=== PATIENT | female | born 1970 | race Caucasian/White ===

== ENCOUNTER 2019-12-03 19:19 | Inpatient (IN) | payer OTHER ==
[~2019-12-03] VITALS: Ht 167.6 cm; Wt 68.0 kg
[~2019-12-03 19:19] MED LIST: LEVE250T2 PO; LEVO112T5 PO
[2019-12-03] MEDS ORDERED: LORAZEPAM INJ 2 MG/ML VIAL ONE (19:38)
--- NOTE | 2019-12-03 19:40 | NUR ---
PT BIB [facility] WITH A C/O WITNESSED SEIZURE. PT REC'D 10MG DIAZAPAM BY FAMILY CESSATION SYSTEMS OUTREACH SPECIALIST AND VERSED WAS GIVEN IV BY RESCUE. PT HAS AN 18G IV IN LT WRIST. IV IS NOT FLUSHING WELL. WILL START A NEW LINE. PT WAS PLACED ON THE MONITOR AND CONTINUOUS PULSE OX. SR UP X2 AND PADDED. PT IS FEBRILE WITH RECTAL TEMP OF 102.3F
[2019-12-03 19:58] LABS: BASOPHILS % (AUTO) 0.3 % (0.0-2.0); EOSINOPHILS % (AUTO) 0.1 % (0.0-6.0); HEMATOCRIT 39 % (33-45); HEMOGLOBIN 13.7 g/dL (11.5-14.8); LYMPHOCYTES # (AUTO) 0.1 /CMM (0.8-4.8); LYMPHOCYTES % (AUTO) 0.9 % (20.0-44.0); MEAN CORPUSCULAR HGB CONC 35 g/dl (31.0-36.0); MEAN CORPUSCULAR VOLUME 90 fL (82-100); MONOCYTES # (AUTO) 0.9 /CMM (0.1-1.30); MONOCYTES % (AUTO) 5.4 % (2.0-12.0); NEUTROPHILS # (AUTO) 14.6 /CMM (1.8-8.9); NEUTROPHILS % (AUTO) 93.3 % (43.0-81.0); PLATELET COUNT (AUTO) 300 /CMM (150-450); RED BLOOD CELL COUNT(AUTO) 4.38 MIL/uL (4.0-5.2); WHITE BLOOD COUNT (AUTO) 15.6 K/uL (4.3-11.0)
[2019-12-03] MEDS ORDERED: LORAZEPAM INJ 2 MG/ML VIAL IVP ONE (20:00)
[2019-12-03] MEDS ORDERED: LEVETIRACETAM (500MG) 1,000 MG in IV NS 0.9% 100 ML IV ONE (20:00)
[2019-12-03] MEDS ORDERED: IV NS 0.9% 1,000 ML BAG IV ONE ×2 (20:00→20:30)
--- NOTE | 2019-12-03 20:12 | NUR ---
PT LEFT FOR CT VIA RNEY
[2019-12-03 20:15] LABS: CALCIUM, SERUM 8.8 mg/dL (8.5-10.1); CARBON DIOXIDE 25 mmol/L (21-32); CHLORIDE 96 mmol/L (98-107); CREATININE 0.8 mg/dL (0.6-1.3); GLUCOSE 143 mg/dL (74-106); POTASSIUM 3.5 mmol/L (3.5-5.1); SODIUM SERUM 132 mmol/L (136-145); UREA NITROGEN, BLOOD 17 mg/dL (7-18)
[2019-12-03 20:21] LABS: ALANINE AMINOTRANSFERASE 47 U/L (12-78); ALBUMIN 3.1 g/dL (3.4-5.0); ALKALINE PHOSPHATASE 135 U/L (46-116); ASPARTATE AMINOTRANSFERASE 37 U/L (15-37); BILIRUBIN,DIRECT 0.1 mg/dL (0.0-0.2); BILIRUBIN,TOTAL 0.5 mg/dL (0.2-1.0); TOTAL PROTEIN, SERUM 6.9 g/dL (6.4-8.2)
[2019-12-03] MEDS ORDERED: MEROPENEM 1 G in IV NS 0.9% 100 ML IV ONE (20:30)
[2019-12-03 20:38] LABS: APPEARANCE,URINE Slightly Cloudy (CLEAR); BILIRUBIN,URINE Negative (NEGATIVE); BLOOD, URINE Moderate Ery/uL (NEGATIVE); COLOR,URINE Yellow (YELLOW); KETONES,URINE 15 (NEGATIVE); LEUKOCYTE ESTERASE ,URINE Small (NEGATIVE); NITRITE, URINE Positive (NEGATIVE); PH,URINE 5.5 (5.0-8.0); PROTEIN,URINE 30 mg/dl (NEGATIVE); UGLUCOSE Negative (NEGATIVE); UROBILINOGEN,URINE 0.2 EU/dL (0.2)
[2019-12-03 20:58] LABS: BACTERIA,URINE 4+ /HPF (None Seen); SQUAMOUS EPITHELIAL CELL,UR Few /HPF (None Seen)
--- NOTE | 2019-12-03 21:00 | NUR ---
PT IS STILL POSTICTAL. PT HAS A CHESTY COUGH. DR HAYWOOD NOTIFIED AND NASOPHARYNGEAL SUCTIONING REQUESTED FROM RT.
--- NOTE | 2019-12-03 21:06 | NUR ---
RT IS AT THE BEDSIDE SUCTIONING THE PT.
[2019-12-03] MEDS ORDERED: MEROPENEM 1 G VIAL IV ONE (21:09)
--- NOTE | 2019-12-03 21:15 | NUR ---
CALLED FOR ISO BED
--- NOTE | 2019-12-03 21:22 | NUR ---
BED ASSIGNMENT 106
--- NOTE | 2019-12-03 21:31 | NUR ---
CALLING REPORT TO SHANON GAMBLE
--- NOTE | 2019-12-03 21:45 | NUR ---
RN OPNENING NOTE PATIENT ARRIVED TO UNIT AT THIS TIME VIA STRETCHER. A&O X1. RESPONSIVE TO LIGHT PAIN. BREATHING IS EVEN AND NON LABORED. ON O2 2L VIA NC. VITALS WNL/ BHUPINDER AND PARAFFINER GARLAND IS AT BEDSIDE AT THIS TIME. PATIENT APPEARS TO BE DROWSY. UNCLEAR SPEECH. FLACCID RIGHT LOWER AND UPPER EXTREMITIES. SKIN IS INTACT. CAPILLARY REFILL <3 SECONDS. BOWEL SOUNDS ON ALL FOUR QUADRANTS. ON SUPRAPUBIC CATH AND DRAINING WELL. URINE IS CLEAR AND YELLOW IN COLOR. IN NO APPARENT DISTRESS NOTED AT THIS TIME. BED SIDE RAILS ARE PADDED FOR SEIZURE PRECAUTIONS. BED IS LOWERED TO LOWEST POSITION AND LOCKED FOR SAFETY. CALL LIGHT IS WITHIN REACH. WILL CONTINUE TO MONITOR.
[2019-12-03] MEDS ORDERED: CEFTRIAXONE 1GM BAG (ER ONLY) 1 GM/50 ML PIGGYBACK IV SCH (23:51)
[2019-12-04] MEDS ORDERED: ONDANSETRON HCL/PF 4 MG/2 ML VIAL IVP PRN
[2019-12-04] MEDS ORDERED: MORPHINE SULFATE INJ 2 MG/ML DISP.SYRIN IV PRN
[2019-12-04] MEDS ORDERED: ACETAMINOPHEN 325 MG TABLET PO PRN
[2019-12-04] MEDS ORDERED: ACETAMINOPHEN 650 MG/SUPP.RECT RC PRN
[2019-12-04] MEDS ORDERED: Potassium Chloride 20 MEQ in IV NS 0.9% 1,000 ML IV PRN ×2
[2019-12-04] MEDS ORDERED: LORAZEPAM INJ 2 MG/ML VIAL IV PRN
[2019-12-04] MEDS ORDERED: CEFTRIAXONE 1 G VIAL ONE (00:21)
[2019-12-04] MEDS: CEFTRIAXONE 1 G in IV D5W 50 ML IV SCH ×2 (01:06→22:07)
[2019-12-04] MEDS: IV NS W/20MEQ KCL 1L IV PRN ×4 (01:26→15:48)
[2019-12-04 06:56] LABS: BASOPHILS % (AUTO) 0.2 % (0.0-2.0); EOSINOPHILS % (AUTO) 0.6 % (0.0-6.0); HEMATOCRIT 39 % (33-45); HEMOGLOBIN 13.4 g/dL (11.5-14.8); LYMPHOCYTES # (AUTO) 0.6 /CMM (0.8-4.8); LYMPHOCYTES % (AUTO) 5.9 % (20.0-44.0); MEAN CORPUSCULAR HGB CONC 34 g/dl (31.0-36.0); MEAN CORPUSCULAR VOLUME 92 fL (82-100); MONOCYTES # (AUTO) 0.7 /CMM (0.1-1.30); MONOCYTES % (AUTO) 7.4 % (2.0-12.0); NEUTROPHILS # (AUTO) 8.7 /CMM (1.8-8.9); NEUTROPHILS % (AUTO) 85.9 % (43.0-81.0); PLATELET COUNT (AUTO) 293 /CMM (150-450); RED BLOOD CELL COUNT(AUTO) 4.29 MIL/uL (4.0-5.2); WHITE BLOOD COUNT (AUTO) 10.1 K/uL (4.3-11.0)
--- NOTE | 2019-12-04 06:59 | NUR ---
RN CLOSING NOTE PATIENT IS IN BED RESTING WITH HOB ELEVATED. BREATHING IS EVEN AND NON LABORED. NO SOB NOTED. IN NO APPARENT DISTRESS. PATIENT IS KEPT CLEAN, DRY, AND COMFORTABLE. CALL LIGHT IS WITHIN EASY REACH. WILL ENDORSE TO AM SHIFT RN FOR CONTINUATION OF CARE.
--- NOTE | 2019-12-04 07:05 | NUR ---
RN OPENING NOTES PT IS ASLEEP IN BED WITH HOB ELEVATED WITH EQUAL CHEST RISE AND FALL AND SHOWS NO SIGNS OF SOB AT PRESENT MOMENT. PT IS SR ON TELE MONITOR 98 HR . SEIZURE PRECAUTIONS IN PLACE. BED IS LOCKED AND IN LOWEST POSITION WITH CALL LIGHT IN REACH. WILL CONTINUE TO MONITOR.
[2019-12-04 07:36] LABS: THYROID STIMULATING HORMONE 2.959 uIU/mL (0.358-3.74)
[2019-12-04 07:44] LABS: ALBUMIN 2.7 g/dL (3.4-5.0); BILIRUBIN,TOTAL 0.5 mg/dL (0.2-1.0); CALCIUM, SERUM 8.7 mg/dL (8.5-10.1); CREATININE 0.6 mg/dL (0.6-1.3); MAGNESIUM 1.9 mg/dL (1.8-2.4); PHOSPHORUS 3.3 mg/dL (2.5-4.9); POTASSIUM 3.8 mmol/L (3.5-5.1); TOTAL PROTEIN, SERUM 6.1 g/dL (6.4-8.2)
[2019-12-04 08:00] VITALS: BP 118/70
[2019-12-04] MEDS: LEVOTHYROXINE SODIUM 112 MCG TABLET PO SCH (08:28)
[2019-12-04] MEDS ORDERED: LACO150T2 PO (08:42)
[2019-12-04] MEDS ORDERED: AMLO5TAB9 PO (08:42)
[2019-12-04] MEDS ORDERED: CLOB10TA3 PO (08:42)
[2019-12-04] MEDS ORDERED: LACO200T2 PO (08:42)
[2019-12-04] MEDS ORDERED: LISI-607 PO (08:42)
[2019-12-04] MEDS ORDERED: LEVETIRACETAM (500MG) 500 MG in IV NS 0.9% 100 ML IV SCH ×3 (09:00)
[2019-12-04 12:00] VITALS: BP 109/85
[2019-12-04 16:00] VITALS: BP 126/90
--- NOTE | 2019-12-04 17:22 | NUR ---
REPORT GIVEN TO RN EMERALD FOR TRANSFER OF CARE.
--- NOTE | 2019-12-04 18:25 | NUR ---
rn closing notes Patient remains on room air, no sob noted, a/o x1 at this time. SR rhytm on the tele. Suprapubic cath in place and is draining. Bed ridden and skin is intact, patient with regular diet. Patient has a R hand with 20 gauge with 20 MEQ KCL NS @ 70 ml per hour. Bed at the lowest setting, call light within reach, side rails up x2. Will give report to NOC RN for APOLINAR bedside.
[2019-12-04 20:00] VITALS: BP 120/73
--- NOTE | 2019-12-04 20:00 | NUR ---
CLINICAL DATA ASSISTANT NOTES RECEIVED PATIENT AWAKE IN BED WITH NO DISTRESS NOTED. CALL LIGHT WITHIN REACH. CAREGIVER AT BEDSIDE. PERIPHERAL LINE INTACT AND PATENT. SUPRAPUBIC CATH INTACT AND PATENT. NO C/O PAIN OR DISCOMFORT. SEIZURE PRECAUTIONS MAINTAINED. BED IN LOW LOCK SETTING. ROOM FREE OF CLUTTER AND BELONGINGS KEPT NEAR BEDSIDE. WILL CONTINUE TO MONITOR
[2019-12-04] MEDS ORDERED: LACOSAMIDE ORAL SOLN 50 MG/5 ML UDC PO SCH (22:00)
[2019-12-04] MEDS ORDERED: CLOBAZAM 10 MG PO SCH ×2 (22:00)
[2019-12-04] MEDS ORDERED: LACOSAMIDE ORAL SOLN 50 MG/5 ML UDC ONE (23:05)
[2019-12-05] VITALS (7 sets, daily range): BP systolic 122–157; BP diastolic 76–86
[2019-12-05] MEDS: IV NS W/20MEQ KCL 1L IV PRN ×4 (05:46→22:10)
--- NOTE | 2019-12-05 06:28 | NUR ---
CHIEF SUPPLY CHAIN OFFICER NOTES PATIENT ASLEEP IN BED WITH NO DISTRESS NOTED. CALL LIGHT WITHIN REACH. ALL DUE MEDS GIVEN ORDERED WITH NO ASE NOTED. PERIPHERAL LINE INTACT AND PATENT. SUPRAPUBIC CATH INTACT, PATENT, AND DRAINED 1600ML CLEAR YELLOW URINE. SEIZURE PRECAUTIONS MAINTAINED. BED IN LOW LOCK SETTING. ROOM FREE OF CLUTTER AND BELONGINGS KEPT NEAR BEDSIDE. WILL ENDORSE TO ONCOMING SHIFT
--- NOTE | 2019-12-05 07:05 | NUR ---
STOPPERER ASSEMBLER OPENING NOTES RECEIVED PATIENT IN BED, ALERT AND AWAKE ORIENTED TO SELF. PATIENT SOFT SPOKEN. NO SOB. HOB ELEVATED. DENIES ANY C/O PAIN NOR DISCOMFORT AT THIS TIME. SUPRAPUBIC CATH INTACT AND PATENT DRAINING VIA BEDSIDE. RIGHT HAND # 20 INTACT AND PATENT INFUSING IVF ORDERED. BED IN LOWEST POSITION, LOCKED. BED SIDERAILS UP X2. SEIZURE PRECAUTIONS OBSERVED. CALL LIGHT WITHIN REACH. FREQUENT VISUAL CHECK DONE.
[2019-12-05] MEDS: LEVOTHYROXINE SODIUM 112 MCG TABLET PO SCH (08:48)
[2019-12-05] MEDS ORDERED: LACOSAMIDE ORAL SOLN 50 MG/5 ML UDC PO SCH ×2 (09:00)
[2019-12-05] MEDS ORDERED: CLOBAZAM 10 MG PO SCH ×2 (09:00)
[2019-12-05] MEDS ORDERED: BISACODYL SUPP (10 MG) 10 MG/SUPP.RECT SUPP.RECT RC PRN (13:00)
[2019-12-05 13:09] LABS: BASOPHILS % (AUTO) 0.4 % (0.0-2.0); EOSINOPHILS % (AUTO) 1.8 % (0.0-6.0); HEMATOCRIT 36 % (33-45); HEMOGLOBIN 12.5 g/dL (11.5-14.8); LYMPHOCYTES # (AUTO) 0.6 /CMM (0.8-4.8); LYMPHOCYTES % (AUTO) 10.1 % (20.0-44.0); MEAN CORPUSCULAR HGB CONC 35 g/dl (31.0-36.0); MEAN CORPUSCULAR VOLUME 91 fL (82-100); MONOCYTES # (AUTO) 0.5 /CMM (0.1-1.30); MONOCYTES % (AUTO) 8.8 % (2.0-12.0); NEUTROPHILS # (AUTO) 4.9 /CMM (1.8-8.9); NEUTROPHILS % (AUTO) 78.9 % (43.0-81.0); PLATELET COUNT (AUTO) 317 /CMM (150-450); RED BLOOD CELL COUNT(AUTO) 3.95 MIL/uL (4.0-5.2); WHITE BLOOD COUNT (AUTO) 6.2 K/uL (4.3-11.0)
[2019-12-05 13:36] LABS: CALCIUM, SERUM 7.8 mg/dL (8.5-10.1); CREATININE 0.6 mg/dL (0.6-1.3); POTASSIUM 3.6 mmol/L (3.5-5.1)
--- NOTE | 2019-12-05 14:40 | NUR ---
MIDDLE SCHOOL SPECIAL EDUCATION TEACHER NOTES RECEIVED A CALL FROM DR. PENA WITH N.O CARRIED OUT FOR INCREASE ONFI TO 20 MG PO Q12HR AND INCREASE VIMPAT ORAL SOLUTION TO 250MG PO Q 12HR.
[2019-12-05] MEDS ORDERED: KEY,NONCONTROL,TO KEEP IN PYXI 1 EA MC ONE ×2 (16:27→19:16)
[2019-12-05] MEDS: DOCUSATE SODIUM LIQ 100 MG/10 ML UDC PO SCH (16:30)
--- NOTE | 2019-12-05 16:30 | NUR ---
MS RN NOTES RECEIVED 20 TABS OF ONFI, PUT IN SAFE IN MED ROOM.
--- NOTE | 2019-12-05 19:08 | NUR ---
CHILD WELFARE DIRECTOR CLOSING NOTES PATIENT RESTING COMFRTABLY IN BED. CAREGIVER AT BEDSIDE. NO S/S OF RESPIRATORY DISTRESS. HOB ELEVATED. DENIES ANY C/O PAIN NOR DISCOMFORT AT THIS TIME. SUPRAPUBIC CATH INTACT AND PATENT DRAINING VIA YELLOW COLORED URINE VIA BEDSIDE. RIGHT HAND # 20 INTACT AND PATENT INFUSING POTASSIUM CHLORIDE 20MEQ @ 80ML/HR. RELAYED TO JOSSY BELLA POTASSIUM LEVEL DURING ROUNDS AND PATIENT CURRENTLY ON KCL IVF WITH NNO AT THIS TIME. BED IN LOWEST POSITION, LOCKED. BED SIDERAILS UP X2. SEIZURE PRECAUTIONS OBSERVED. CALL LIGHT WITHIN REACH. FREQUENT VISUAL CHECK DONE. IN NO APPARENT DISTRESS.
--- NOTE | 2019-12-05 19:24 | NUR ---
WRAPPER STITCHER NOTES ENDORSED TO ONCOMING SHOFT REGARDING ONFI IN MED SAFE.
--- NOTE | 2019-12-05 19:44 | NUR ---
VASCULAR SURGERY PHYSICIAN OPENING NOTE RECEIVED PT, PT IN BED WITH CAREGIVER AT SIDE. PT PULLED IV OUT. HOB ELEVATED, MONITOR CARDIAC CARE UNIT NURSE LIGHT WITHIN REACH, WILL RESTART IV TELE MONITOR ON. SAFETY MEASURES IN PLACE.
--- NOTE | 2019-12-05 20:15 | NUR ---
SHINGLE GRADER NOTE REINSERTED IV 20 GAUGE TO LEFT HAND. IV FLUSHED WITH 0.9% NS 10ML, GOOD BLOOD RETURN. IV SITE PATENT AND INTACT
[2019-12-05] MEDS ORDERED: MISCELLANEOUS MED 1 EA EA PO SCH ×2 (21:00)
[2019-12-05] MEDS: CEFTRIAXONE 1 G in IV D5W 50 ML IV SCH (21:58)
[2019-12-05] MEDS: LACOSAMIDE ORAL SOLN 50 MG/5 ML UDC PO SCH ×2 (22:38→22:58)
[2019-12-05] MEDS: CLOBAZAM 10 MG PO SCH (22:57)
[2019-12-06 06:35] LABS: BASOPHILS % (AUTO) 0.9 % (0.0-2.0); HEMATOCRIT 35 % (33-45); HEMOGLOBIN 12.3 g/dL (11.5-14.8); LYMPHOCYTES # (AUTO) 0.9 /CMM (0.8-4.8); LYMPHOCYTES % (AUTO) 16.3 % (20.0-44.0); MEAN CORPUSCULAR HGB CONC 35 g/dl (31.0-36.0); MEAN CORPUSCULAR VOLUME 91 fL (82-100); MONOCYTES # (AUTO) 0.5 /CMM (0.1-1.30); MONOCYTES % (AUTO) 9.2 % (2.0-12.0); NEUTROPHILS # (AUTO) 3.8 /CMM (1.8-8.9); NEUTROPHILS % (AUTO) 70.6 % (43.0-81.0); PLATELET COUNT (AUTO) 297 /CMM (150-450); RED BLOOD CELL COUNT(AUTO) 3.84 MIL/uL (4.0-5.2); WHITE BLOOD COUNT (AUTO) 5.4 K/uL (4.3-11.0)
[2019-12-06 06:43] LABS: CALCIUM, SERUM 8.3 mg/dL (8.5-10.1); CREATININE 0.6 mg/dL (0.6-1.3)
--- NOTE | 2019-12-06 06:56 | NUR ---
SPACE SCIENCES DIRECTOR CLOSING NOTE PT IN BED SLEEPING, SAFETY PRECAUTIONS IN PLACE. IV SITE TO LEFT HAND PATENT AND INTACT. ENDORSED TO AM NURSE PER APOLINAR
--- NOTE | 2019-12-06 07:20 | NUR ---
RN OPENING NOTE: RECEIVED PATIENT IN BED, ASLEEP. ON ROOM AIR AND TOLERATING WELL. NO SOB AND NO RESPIRATORY DISTRESS NOTED. SATURATION >92%. NO PAIN NOTED. WITH SUPRAPUBIC CATHETER DRAINING YELLOW URINE NOTED. IV SITE ON LEFT HAND WITH IV INFUSION RUNNING AND TOLERATED WELL. SITE CLEAN, DRY AND PATENT. NO PAIN NOTED. CALL LIGHT WITHIN REACH. BED LOCKED, LOW AND AT SEMI-PARKS'S POSITION. SIDE RAILS UP X2. WILL CONTINUE TO MONITOR.
[2019-12-06 08:00] VITALS: BP 132/75
[2019-12-06] MEDS ORDERED: KEY,NONCONTROL,TO KEEP IN PYXI 1 EA MC ONE (08:27)
[2019-12-06] MEDS: CLOBAZAM 10 MG PO SCH ×2 (08:28→21:37)
[2019-12-06] MEDS: LEVOTHYROXINE SODIUM 112 MCG TABLET PO SCH (09:24)
[2019-12-06] MEDS: DOCUSATE SODIUM LIQ 100 MG/10 ML UDC PO SCH ×2 (09:24→17:31)
--- NOTE | 2019-12-06 10:45 | NUR ---
RN NOTE: UPON AWAITING FOR THE REST OF THE 15ML OF VIMPAT, 10ML DOSE ON HAND RETURNED TO [facility] PER PHARMACY RECOMMENDATION. AND PHARMACY WILL DISPENSE TOTAL OF 25ML UPON REFILLING OF MEDICATION. WITNESSED BY SHANON SANCHEZ
[2019-12-06] MEDS: LACOSAMIDE ORAL SOLN 50 MG/5 ML UDC PO SCH ×2 (11:13→21:38)
--- NOTE | 2019-12-06 14:37 | NUR ---
RN NOTE: CONTACTED JOSSY BOYLE NP FOR PATIENT'S MED RECON RECOMMENDED BY PHARMACY. AWAITING RESPONSE
[2019-12-06] MEDS: MEROPENEM 500 MG in IV NS 0.9% 50 ML IV SCH ×2 (15:18→21:37)
[2019-12-06 16:00] VITALS: BP 157/95
--- NOTE | 2019-12-06 19:20 | NUR ---
RN CLOSING NOTE: PATIENT IN BED. AWAKE, ALERT AND ORIENTEDX1. ON ROOM AIR AND TOLERATING WELL. NO SOB AND NO RESPIRATORY DISTRESS NOTED. CAREGIVER AT BEDSIDE. SATURATION >92%. NO PAIN NOTED. WITH SUPRAPUBIC CATHETER DRAINING YELLOW URINE NOTED. NO PAIN NOTED. CALL LIGHT WITHIN REACH. BED LOCKED, LOW AND AT SEMI-PARKS'S POSITION. SIDE RAILS UP X2. ENDORSED TO ONCOMING SHIFT FOR APOLINAR.
--- NOTE | 2019-12-06 19:20 | NUR ---
RN MS OPENING NOTES RECEIVED PATIENT IN BED AWAKE ALERT AND ORIENTED X1, RESPIRATIONS EVEN AND UNLABORED WITH EQUAL RISE AND FALL OF CHEST, UPON ASSESSMENT NO PAIN NOTED, NO FACIAL GRIMACING PRESENT, APPEARS COMFORTABLE, NEW IV INSERTED TO RIGHT HAND #22 G INTACT AND PATENT, SL, NO REDNESS, NO INFILTRATION PRESENT, SAFETY PRECAUTIONS IN PLACE, LOW BED AND LOCKED, ALL NEEDS ATTENDED AT THIS TIME, REPOSITIONED, HEELS FLOATED, SUPRAPUBIC IN PLACE AND DRAINING WELL, WILL CONTINUE TO MONITOR AND ATTEND TO NEEDS.
[2019-12-06 20:00] VITALS: BP 128/86
[2019-12-07 04:00] VITALS: BP 127/81
[2019-12-07 04:30] VITALS: BP 127/81
[2019-12-07] MEDS: MEROPENEM 500 MG in IV NS 0.9% 50 ML IV SCH ×3 (05:09→18:16)
[2019-12-07 06:23] LABS: BASOPHILS % (AUTO) 0.4 % (0.0-2.0); EOSINOPHILS % (AUTO) 3.5 % (0.0-6.0); HEMATOCRIT 39 % (33-45); HEMOGLOBIN 13.6 g/dL (11.5-14.8); LYMPHOCYTES # (AUTO) 0.8 /CMM (0.8-4.8); LYMPHOCYTES % (AUTO) 14.9 % (20.0-44.0); MEAN CORPUSCULAR HGB CONC 35 g/dl (31.0-36.0); MEAN CORPUSCULAR VOLUME 90 fL (82-100); MONOCYTES # (AUTO) 0.5 /CMM (0.1-1.30); MONOCYTES % (AUTO) 9.2 % (2.0-12.0); NEUTROPHILS # (AUTO) 3.9 /CMM (1.8-8.9); PLATELET COUNT (AUTO) 319 /CMM (150-450); RED BLOOD CELL COUNT(AUTO) 4.33 MIL/uL (4.0-5.2); WHITE BLOOD COUNT (AUTO) 5.4 K/uL (4.3-11.0)
--- NOTE | 2019-12-07 06:23 | NUR ---
RN MS CLOSING NOTES PATIENT IN BED AWAKE ALERT AND ORIENTED X1, RESPIRATIONS EVEN AND UNLABORED WITH EQUAL RISE AND FALL OF CHEST, UPON ASSESSMENT NO PAIN NOTED, NO FACIAL GRIMACING PRESENT, APPEARS COMFORTABLE, REPOSITIONED Q2HRS , OFFLOADED HEELS WITH PILLOWS, IV TO RIGHT HAND #22 G INTACT AND PATENT, SL, NO REDNESS, NO INFILTRATION PRESENT, SAFETY PRECAUTIONS IN PLACE, LOW BED AND LOCKED, ALL NEEDS ATTENDED AT THIS TIME, SUPRAPUBIC CATHETER IN PLACE AND DRAINING WELL, WILL CONTINUE TO MONITOR AND ATTEND TO NEEDS AND ENDORSE TO NEXT SHIFT, SCHEDULED MEDS GIVEN ORDERED NO ADVERSE REACTIONS.
[2019-12-07 06:32] LABS: CALCIUM, SERUM 8.9 mg/dL (8.5-10.1); CREATININE 0.6 mg/dL (0.6-1.3); POTASSIUM 3.8 mmol/L (3.5-5.1)
--- NOTE | 2019-12-07 07:18 | NUR ---
MS RN OPENING NOTES RECEIVED PATIENT FROM PREPARATION DEPARTMENT SUPERVISOR NURSE. PT IS ASLEEP IN BED, RESTING COMFORTABLY. RESPIRATIONS ARE EVEN AND UNLABORED, ON ROOM AIR SATURATING WELL. PT IS A/O X1, HAS DELAYED SPEECH. SUPRAPUBIC CATHETER IS IN PLACE, DRAINING WELL, 1300ML DURING NIGHT. IV ON RIGHT HAND, GAUGE #22, INTACT, PATENT, AND FLUSHED WELL. NO SIGNS AND SYMPTOMS OF INFECTION OR INFILTRATION NOTED. ON SL. SAFETY MAINTAINED, CALL LIGHT WITHIN REACH, WILL CONTINUE TO MONITOR.
[2019-12-07] MEDS ORDERED: LEVOTHYROXINE SODIUM 112 MCG TABLET PO SCH (07:30)
[2019-12-07 08:00] VITALS: BP 109/76
[2019-12-07] MEDS ORDERED: KEY,NONCONTROL,TO KEEP IN PYXI 1 EA MC ONE ×2 (09:32→18:44)
[2019-12-07] MEDS: DOCUSATE SODIUM LIQ 100 MG/10 ML UDC PO SCH ×2 (09:40→16:50)
[2019-12-07] MEDS: LACOSAMIDE ORAL SOLN 50 MG/5 ML UDC PO SCH (09:40)
[2019-12-07] MEDS: CLOBAZAM 10 MG PO SCH (09:44)
[2019-12-07] MEDS ORDERED: LACO10SO PO (12:51)
[2019-12-07] MEDS ORDERED: MERO500V23 IV (12:51)
[2019-12-07 16:00] VITALS: BP 136/84
--- NOTE | 2019-12-07 19:27 | NUR ---
DISCHARGED PATIENT TO HOME. ALL PATIENT NEEDS MET. PATIENT IN STABLE CONDITION. DISCHARGE EDUCATION WAS PROVIDED TO THE AND THE PATIENT. SIGNED AND PLACED IN THE CHART. TAKEN OUT THE HOSPITAL BY AND CAREGIVER VIA WHEELCHAIR.
== END 2019-12-07 19:44 | disposition home or self-care (01) | DRG 872 ==
LOC: ER 19:22 → TELE1 21:43 → MEDSG1 12-06 03:58
PROVIDERS: ADMIT Internal Medicine
DX: A41.9 Sepsis, unspecified organism (principal); D68.59 Other primary thrombophilia; E87.1 Hypo-osmolality and hyponatremia; N39.0 Urinary tract infection, site not specified; I69.351 Hemiplegia and hemiparesis following cerebral infarction affecting right dominant side; E87.2 Acidosis; G40.901 Epilepsy, unspecified, not intractable, with status epilepticus; R65.20 Severe sepsis without septic shock; G35 Multiple sclerosis; E03.9 Hypothyroidism, unspecified; G40.909 Epilepsy, unspecified, not intractable, without status epilepticus; Z74.01 Bed confinement status; E86.1 Hypovolemia; Z79.890 Hormone replacement therapy; Z79.899 Other long term (current) drug therapy; Z87.440 Personal history of urinary (tract) infections; Z74.09 Other reduced mobility; B96.20 Unspecified Escherichia coli [E. coli] as the cause of diseases classified elsewhere
CPT/HCPCS: 36415; 70450-TC; 71045-TC; 80048-TC; 80053-TC; 80061-TC; 80076-TC; 81000-TC; 83605-TC; 83735-TC; 84100-TC; 84443-TC; 84484-TC; 84702-TC; 85025-TC; 85730-TC; 87040-TC; 87081-TC; 87086-TC; 87186-TC; 95819-TC; A4216; A4217; G0378; J0696; J1953; J2060; J2185; J3480; J7030; J7060

== ENCOUNTER 2020-10-14 02:51 | Inpatient (IN) | payer OTHER ==
[~2020-10-14] VITALS: Ht 172.7 cm; Wt 68.0 kg
[~2020-10-14 02:51] MED LIST changes: +AMLO-212 PO; +LACO10SO3 PO; -LEVE250T2 PO; +LISI-607 PO; +MERO500V23 IV
[2020-10-14] MEDS ORDERED: LEVETIRACETAM (500MG) 500 MG in IV NS 0.9% 100 ML IV ONE (03:00)
[2020-10-14] MEDS ORDERED: IV NS 0.9% 500 ML BAG IV ONE (03:00)
[2020-10-14] MEDS ORDERED: LEVETIRACETAM (500MG) 500 MG/5 ML VIAL IV ONE (03:10)
[2020-10-14 03:47] LABS: BASOPHILS % (AUTO) 0.2 % (0.0-2.0); EOSINOPHILS % (AUTO) 0.5 % (0.0-6.0); HEMATOCRIT 35 % (33-45); HEMOGLOBIN 12.6 g/dL (11.5-14.8); LYMPHOCYTES # (AUTO) 0.5 /CMM (0.8-4.8); LYMPHOCYTES % (AUTO) 5.9 % (20.0-44.0); MEAN CORPUSCULAR HGB CONC 36 g/dl (31.0-36.0); MEAN CORPUSCULAR VOLUME 87 fL (82-100); MONOCYTES # (AUTO) 0.5 /CMM (0.1-1.30); MONOCYTES % (AUTO) 5.2 % (2.0-12.0); NEUTROPHILS # (AUTO) 8.1 /CMM (1.8-8.9); NEUTROPHILS % (AUTO) 88.2 % (43.0-81.0); PLATELET COUNT (AUTO) 291 /CMM (150-450); RED BLOOD CELL COUNT(AUTO) 4.02 MIL/uL (4.0-5.2); WHITE BLOOD COUNT (AUTO) 9.2 K/uL (4.3-11.0)
[2020-10-14 04:09] LABS: BILIRUBIN,DIRECT 0.2 mg/dL (0.0-0.2); BILIRUBIN,TOTAL 0.6 mg/dL (0.2-1.0); CREATININE 0.5 mg/dL (0.6-1.3); POTASSIUM 3.6 mmol/L (3.5-5.1); TOTAL PROTEIN, SERUM 6.3 g/dL (6.4-8.2)
--- NOTE | 2020-10-14 04:20 | NUR ---
Call from lab. Rapid covid negative.
[2020-10-14] MEDS ORDERED: MISCELLANEOUS MED 1 EA EA XX ONE (04:30)
--- NOTE | 2020-10-14 04:45 | NUR ---
CALLED FUNERAL COUNSELOR FOR 3% HYPERTONIC SOLUTION MEDICATION TO BE OBTAINED FROM NIGHT LOCKER.
[2020-10-14] MEDS ORDERED: IV Sodium Chloride 3% 500 ML 500 ML IV ONE (05:13)
[2020-10-14] MEDS ORDERED: IV Sodium Chloride 3% 500 ML 500 ML IV PRN (06:00)
[2020-10-14] MEDS ORDERED: MAG HYDROX/AL HYDROX/SIMETH 30 ML UDC PO PRN (06:00)
[2020-10-14] MEDS ORDERED: LORAZEPAM INJ 2 MG/ML VIAL IV PRN (06:00)
[2020-10-14] MEDS ORDERED: Z GUARD REMEDY 2 OZ OINT TP PRN (06:00)
[2020-10-14] MEDS ORDERED: MAGNESIUM HYDROXIDE 30 ML UDC PO PRN (06:00)
[2020-10-14] MEDS ORDERED: ACETAMINOPHEN 650 MG/SUPP.RECT RC PRN (06:00)
[2020-10-14] MEDS ORDERED: LEVETIRACETAM (500MG) 500 MG in IV NS 0.9% 100 ML IV SCH ×2 (06:00→18:00)
[2020-10-14] MEDS ORDERED: ONDANSETRON HCL/PF 4 MG/2 ML VIAL IVP PRN (06:00)
--- NOTE | 2020-10-14 06:09 | NUR ---
REPORT GIVEN TO FAY CLAUDIO FOR APOLINAR.
[2020-10-14 06:39] LABS: BILIRUBIN,URINE NEGATIVE (NEGATIVE); BLOOD, URINE SMALL Ery/uL (NEGATIVE); COLOR,URINE YELLOW (YELLOW); LEUKOCYTE ESTERASE ,URINE MODERATE (NEGATIVE); NITRITE, URINE POSITIVE (NEGATIVE); PROTEIN,URINE NEGATIVE (NEGATIVE); UGLUCOSE NEGATIVE (NEGATIVE); UROBILINOGEN,URINE 0.2 EU/dL (0.2)
--- NOTE | 2020-10-14 06:41 | NUR ---
Patient taken to assigned room for continuity of care.
--- NOTE | 2020-10-14 06:42 | NUR ---
THERAPEUTIC RECREATION LEADER NOTES RECEIVED PATIENT FROM ER SAFELY PLACED IN BED , NON VERBAL EYES OPEN , RESPIRATIONS EVEN AND UNLABORED WITH EQUAL RISE AND FALL OF CHEST, APPEARS COMFORTABLE ,PLACED ON MATERIAL ATTENDANT SR 81 NOTED WITH SUPRAPUBIC CATHETER DRAINING YELLOW URINE, NOTED BRUISE TO RIGHT UPPER ARM. NPO STATUS, VS WNL, SEIZURE PRECAUTIONS RENDERED, ASPIRATION PRECAUTIONS RENDERED, LEFT WRIST #18 G INTACT AND PATENT, NO REDNESS, NO INFILTRATION, SAFETY PRECAUTIONS RENDERED LOW BED AND LOCKED, ALL NEEDS ATTENDED AT THIS TIME ,WILL ENDORSE TO ONCOMING NURSE FOR ADMISSION.
[2020-10-14 06:46] LABS: BACTERIA,URINE Many /HPF (None Seen); SQUAMOUS EPITHELIAL CELL,UR Few /HPF (None Seen)
[2020-10-14 07:07] VITALS: BP 136/93
--- NOTE | 2020-10-14 07:30 | NUR ---
SEARCH ADVERTISING STRATEGIST OPENING NOTES BEDSIDE ENDORSEMENT DONE. RECEIVED PATIENT IN BED, NON VERBAL, OPENS EYES W/ TACTILE SENSATION. RESPIRATIONS EVEN AND UNLABORED, TOLERATING ROOM AIR. ON TELE MONITOR, READING OF SR, HR IN THE 70'S, NO CARDIAC DISTRESS NOTED. LEFT WRIST IV LINE #18, INTACT AND PATENT. NOTED WITH SUPRAPUBIC CATHETER UPON ADMISSION, DRAINING YELLOW-COLORED URINE. CURRENTLY ON NPO STATUS, SEIZURE AND ASPIRATION PRECAUTIONS. SAFETY PRECAUTIONS IN PLACE: BED LOCKED AND ON LOWEST POSITION, SR UP X2, CALL LIGHT W/IN REACH. WILL CONTINUE TO MONITOR.
[2020-10-14 08:00] VITALS: BP 128/74
--- NOTE | 2020-10-14 08:30 | NUR ---
RN NOTES SPOKE W/ PATIENT'S , MADE AWARE THAT PATIENT IS BEING SEEN BY DR. DISLA AND DR. COMER, NEUROLOGIST, FOR CONSULT. WITH NEW ORDERS NOTED.
[2020-10-14] MEDS ORDERED: LACOSAMIDE IV SCH (09:00)
[2020-10-14] MEDS ORDERED: phenytoin SODIUM IV 1,000 MG in IV NS 0.9% 100 ML IV ONE (09:00)
[2020-10-14] MEDS ORDERED: LEVO100T PO (09:00)
[2020-10-14] MEDS ORDERED: CITA10TA9 PO (09:00)
[2020-10-14] MEDS ORDERED: CLOB10TA3 PO (09:00)
[2020-10-14] MEDS ORDERED: NS 0.9% IV SCH (09:00)
[2020-10-14] MEDS ORDERED: LACO200T2 PO (09:00)
[2020-10-14] MEDS: PANTOPRAZOLE 40 MG VIAL IV SCH (09:33)
[2020-10-14] MEDS: IV NS 0.9% 1,000 ML IV SCH ×2 (10:30→22:41)
[2020-10-14] MEDS: LACOSAMIDE 200 MG in IV NS 0.9% 100 ML IV SCH ×2 (10:37→22:28)
[2020-10-14] MEDS ORDERED: CLOBAZAM 10MG TABLET PO SCH (13:00)
[2020-10-14] MEDS: PHENYTOIN SODIUM IV 100 MG/2ML VIAL IV SCH ×2 (15:16→21:53)
[2020-10-14 16:00] VITALS: BP 134/76
[2020-10-14 16:25] LABS: CALCIUM, SERUM 8.1 mg/dL (8.5-10.1); CREATININE 0.5 mg/dL (0.6-1.3); POTASSIUM 3.9 mmol/L (3.5-5.1)
--- NOTE | 2020-10-14 19:20 | NUR ---
ARTISTIC ASSOCIATE CLOSING NOTES PATIENT IN BED, NON VERBAL, OPENS EYES W/ TACTILE SENSATION. RESPIRATIONS EVEN AND UNLABORED, TOLERATING ROOM AIR. ON TELE MONITOR, READING OF SR, HR IN THE LOW-MID 70'S, NO CARDIAC DISTRESS NOTED. LEFT WRIST IV LINE #18, INTACT AND PATENT, IVF AND VIMPAT INFUSING WELL ORDERED. SUPRAPUBIC CATHETER DRAINING YELLOW-COLORED URINE. CURRENTLY ON NPO STATUS, SEIZURE AND ASPIRATION PRECAUTIONS. SAFETY PRECAUTIONS MAINTAINED: BED LOCKED AND ON LOWEST POSITION, SR UP X2, CALL LIGHT W/IN REACH. ENDORSED TO TELECOM BILLING ANALYST RN FOR APOLINAR.
--- NOTE | 2020-10-14 19:30 | NUR ---
WARDROBE MANAGER OPENING NOTE RECEIVED PATIENT IN BED. NONVERBAL, OPENS EYES. TOLERATING ROOM AIR. RESPIRATIONS ARE EVEN AND UNLABORED. NO S/S SOB NOTED. NO S/S PAIN NOTED. EXTERNAL TELE MONITOR READS SINUS RHYTHM HR 90. IN NO APPARENT DISTRESS. IV ACCESS IN LEFT WRIST #18 RUNNING NS@75ML/HR AND VIMPAT @2ML/HR. BED IS LOW AND LOCKED, HOB ELEVATED IN SEMI FOWLERS, SIDE RIALSX3, PADDED, ANDRZEJ LIGHT WITHIN REACH WILL CONTINUE TO MONITOR.
[2020-10-14 20:00] VITALS: BP 112/86
--- NOTE | 2020-10-14 22:30 | NUR ---
telephone lineman note changed vampit iv bag with Haim RN. kept rate 2ml/hr. wasted 91ml. placed waste in rx destroyer in medication room also witnessed by Haim RN. forms signed by 2 RN and placed in appropriate binder. will continue to monitor.
[2020-10-15] VITALS: BP 124/67
[2020-10-15 04:00] VITALS: BP 124/81
[2020-10-15] MEDS: PHENYTOIN SODIUM IV 100 MG/2ML VIAL IV SCH ×3 (05:12→21:24)
[2020-10-15 05:39] LABS: BASOPHILS % (AUTO) 0.3 % (0.0-2.0); EOSINOPHILS % (AUTO) 0.1 % (0.0-6.0); HEMATOCRIT 40 % (33-45); LYMPHOCYTES # (AUTO) 0.8 /CMM (0.8-4.8); LYMPHOCYTES % (AUTO) 10.4 % (20.0-44.0); MEAN CORPUSCULAR HGB CONC 35 g/dl (31.0-36.0); MEAN CORPUSCULAR VOLUME 89 fL (82-100); MONOCYTES # (AUTO) 0.7 /CMM (0.1-1.30); MONOCYTES % (AUTO) 9.6 % (2.0-12.0); NEUTROPHILS % (AUTO) 79.6 % (43.0-81.0); PLATELET COUNT (AUTO) 320 /CMM (150-450); RED BLOOD CELL COUNT(AUTO) 4.48 MIL/uL (4.0-5.2); WHITE BLOOD COUNT (AUTO) 7.5 K/uL (4.3-11.0)
[2020-10-15 06:03] LABS: THYROID STIMULATING HORMONE 1.986 uIU/mL (0.358-3.74); URIC ACID 2.1 mg/dL (2.6-7.2)
[2020-10-15 06:05] LABS: CALCIUM, SERUM 8.6 mg/dL (8.5-10.1); CREATININE 0.4 mg/dL (0.6-1.3); MAGNESIUM 2.1 mg/dL (1.8-2.4); POTASSIUM 3.7 mmol/L (3.5-5.1)
--- NOTE | 2020-10-15 07:30 | NUR ---
VALVE GRINDER CLOSING NOTE PATIENT RESTING IN BED. NONVERBAL, OPENS EYES. REMAINS TOLERATING ROOM AIR. NO RESP DISTRESS NOTED. NO S/S PAIN NOTED T/O SHIFT. EXTERNAL TELE MONITOR READS SINUS RHYTHM. NO DISTRESS. IV ACCESS MAINTAINED IN LEFT WRIST #18 RUNNING NS@75ML/HR AND VIMPAT @2ML/HR. BED REMAINS LOW AND LOCKED, HOB ELEVATED IN SEMI FOWLERS, SIDE RIALSX3, PADDED, CALL LIGHT WITHIN REACH. WILL ENDORSE TO NEXT SHIFT.
--- NOTE | 2020-10-15 07:30 | NUR ---
TELE/RN OPENING NOTE Received patient awake in bed, nonverbal but opens eyes to verbal and tactile stimulation. No complaints of pain/discomfort noted. Breathing even and non-labored on RA, no SOB noted. No respiratory or cardiac distress noted. On tele monitor, reading SR 80. IV access noted on LFA #18g, patent and intact, and flushing well. Suprapubic catheter in place, draining ciera urine well. Bed locked to its lowest position, side rails x 2 up, call light in hand. Seizure precautions maintained. Will continue with current medical management.
[2020-10-15 08:00] VITALS: BP 129/80
--- NOTE | 2020-10-15 08:00 | NUR ---
TELE/RN NOTE Attempted IV insertion twice, patient is hard stick. Notified Dr. Day at bedside, ordered midline insertion. Ordered carried out and notified nursing shipfitters supervisor. Per nursing shipfitters supervisor, midline insertion will be done at 1300. In addition, per Dr. Day, DC NS fluids since patient's sodium levels are within normal limits. Order carried out. Will continue to monitor patient throughout the day for changes of condition.
[2020-10-15] MEDS: LACOSAMIDE 200 MG in IV NS 0.9% 100 ML IV SCH ×2 (08:04→21:25)
[2020-10-15] MEDS: PANTOPRAZOLE 40 MG VIAL IV SCH (08:15)
--- NOTE | 2020-10-15 13:20 | NUR ---
TELE/RN NOTE Midline insertion done, noted at ALICE #18g, patent and intact, and flushing well. Removed LFA #18g access with catheter intact, elevated left upper extremity with pillow to relieve infiltration.
[2020-10-15 16:00] VITALS: BP 129/90
--- NOTE | 2020-10-15 19:00 | NUR ---
MS/RN CLOSING NOTE Patient resting in bed, nonverbal but opens eyes to verbal and tactile stimulation. All needs met and attended to. No complaints of pain/discomfort noted. Breathing even and non-labored on RA, no SOB noted. No respiratory or cardiac distress noted. Midline access noted on HENRIETTA, patent and intact, and flushing well. Suprapubic catheter in place, draining ciera urine well. Fall precautions maintained. No episodes of seizures noted, seizure precautions maintained. Will endorse to hotel recreational facilities manager nurse.
--- NOTE | 2020-10-15 19:30 | NUR ---
MS RN OPENING NOTE RECEIVED PATIENT ON ISOLATION FOR R/O COVID. PATIENT IN BED. NONVERBAL, OPENS EYES. TOLERATING ROOM AIR. RESPIRATIONS ARE EVEN AND UNLABORED. NO S/S SOB NOTED. NO S/S PAIN NOTED. IN NO APPARENT DISTRESS. IV ACCESS IN ALICE MIDLINE #18 RUNNING VIMPAT @2ML/HR. SUPRAPUBIC CATHETER IS PRESENT, DRAINING TO GRAVITY. BED IS LOW AND LOCKED, HOB ELEVATED IN SEMI FOWLERS, SIDE RIALSX3, PADDED, CALL LIGHT WITHIN REACH WILL CONTINUE TO MONITOR.
[2020-10-15 20:00] VITALS: BP 121/86
[2020-10-15] MEDS: FAMOTIDINE/PF INJ 20 MG/2 ML VIAL IV SCH (21:40)
[2020-10-16] MEDS: PHENYTOIN SODIUM IV 100 MG/2ML VIAL IV SCH ×3 (04:32→22:24)
[2020-10-16 06:04] LABS: BASOPHILS % (AUTO) 0.4 % (0.0-2.0); EOSINOPHILS % (AUTO) 1.1 % (0.0-6.0); HEMATOCRIT 37 % (33-45); HEMOGLOBIN 13.1 g/dL (11.5-14.8); LYMPHOCYTES # (AUTO) 0.8 /CMM (0.8-4.8); LYMPHOCYTES % (AUTO) 11.8 % (20.0-44.0); MEAN CORPUSCULAR HGB CONC 35 g/dl (31.0-36.0); MEAN CORPUSCULAR VOLUME 89 fL (82-100); MONOCYTES # (AUTO) 0.5 /CMM (0.1-1.30); MONOCYTES % (AUTO) 7.6 % (2.0-12.0); NEUTROPHILS # (AUTO) 5.3 /CMM (1.8-8.9); NEUTROPHILS % (AUTO) 79.1 % (43.0-81.0); PLATELET COUNT (AUTO) 308 /CMM (150-450); WHITE BLOOD COUNT (AUTO) 6.7 K/uL (4.3-11.0)
[2020-10-16 06:17] LABS: CALCIUM, SERUM 8.6 mg/dL (8.5-10.1); CREATININE 0.5 mg/dL (0.6-1.3); POTASSIUM 3.5 mmol/L (3.5-5.1)
--- NOTE | 2020-10-16 07:30 | NUR ---
MS RN CLOSING NOTE ON ISOLATION TO R/O COVID. PATIENT RESTING IN BED. NONVERBAL, OPENS EYES. TOLERATING ROOM AIR. NO RESP DISTRESS. NO S/S SOB . NO S/S PAIN NOTED NOTED T/O SHIFT. NO SEIZURE ACTIVITY. IV ACCESS MAINTAINED IN ALICE MIDLINE #18 RUNNING VIMPAT @2ML/HR. SUPRAPUBIC CATHETER IS NOT WORKING, WHEN CHANGING PATIENT THE EMMANUEL WAS WET AND THERE IS ONLY 50ML IN BAG OF SUPRAPUBIC CATH. BED REMAINS LOW AND LOCKED, HOB ELEVATED IN SEMI FOWLERS, SIDE RIALSX3, PADDED, CALL LIGHT WITHIN REACH WILL ENDORSE TO NEXT SHIFT.
--- NOTE | 2020-10-16 07:30 | NUR ---
MS RN OPENING NOTES RECEIVED PATIENT IN BED, ASLEEP. PATIENT ON ROOM AIR; BREATHING IS EVEN AND UNLABORED. HENRIETTA MIDLINE PRESENT AND INTACT. LEFT ARM LOOKS RED AND WARM TO TOUCH. MD NOTIFIED. SAFETY PRECAUTIONS IN PLACE; BED IN LOW POSITION AND LOCKED, RAILS PADDED FOR SEIZURE PRECAUTIONS, RAILS UP, CALL LIGHT WITHIN REACH. WILL CONTINUE TO MONITOR PATIENT.
[2020-10-16 08:00] VITALS: BP 136/78
[2020-10-16] MEDS: LACOSAMIDE 200 MG in IV NS 0.9% 100 ML IV SCH ×2 (08:13→22:18)
[2020-10-16] MEDS: FAMOTIDINE/PF INJ 20 MG/2 ML VIAL IV SCH ×2 (08:13→22:21)
--- NOTE | 2020-10-16 08:59 | NUR ---
WOUND CARE CONSULT: REVIEWED CHART, NURSING DOCUMENTATION AND PHOTOS WHICH INDICATE DISCOLORATION OF CHEST/UNDERARM AREA, PRESENT ON ADMISSION. RECOMMENDATIONS MADE FOR SKIN PROTECTION. DISCUSSED WITH NURSING STAFF. MD IN AGREEMENT WITH PLAN OF CARE.
[2020-10-16] MEDS: LEVOTHYROXINE SODIUM 100 MCG TABLET PO SCH (09:30)
[2020-10-16] MEDS: LISINOPRIL (5MG) 5 MG TABLET PO SCH (09:30)
[2020-10-16] MEDS: CITALOPRAM HYDROBROMIDE 10 MG TABLET PO SCH (10:00)
--- NOTE | 2020-10-16 14:50 | NUR ---
nursing swallow eval done, no s/s of aspiration, no cough noted, pt can swallow without any difficulty, per dr. Gustavo river to give po meds, will monitor.
[2020-10-16] MEDS: CLOBAZAM 10MG TABLET PO SCH ×2 (15:11→23:01)
[2020-10-16] MEDS ORDERED: KEY,NONCONTROL,TO KEEP IN PYXI 1 EA MC ONE ×2 (15:17→21:57)
[2020-10-16 16:00] VITALS: BP 138/94
[2020-10-16] MEDS ORDERED: AMLODIPINE BESYLATE 5 MG TABLET PO SCH (18:00)
--- NOTE | 2020-10-16 19:33 | NUR ---
MS RN CLOSING NOTES PATIENT REMAINS IN BED, AWAKE, NON-VERBAL. PATIENT ON ROOM AIR; BREATHING IS EVEN AND UNLABORED DURING THE SHIFT. HENRIETTA MIDLINE PRESENT AND INTACT. LEFT ARM LOOKS RED AND WARM TO TOUCH, AWAITING DOPPLER ULTRASOUND STUDIES OF UPPER ARM. MD NOTIFIED. SAFETY PRECAUTIONS IN PLACE; BED IN LOW POSITION AND LOCKED, RAILS PADDED FOR SEIZURE PRECAUTIONS, RAILS UP, CALL LIGHT WITHIN REACH. WILL ENDORSE TO GAME BREEDING FARM MANAGER NURSE.
--- NOTE | 2020-10-16 20:00 | NUR ---
MS RN OPENING NOTES: RECEIVED PATIENT IN BED WITH HENRIETTA MIDLINE WITH VIMPAT INFUSION AT 2ML/HR. NO COMPLAINS OF PAIN NO FACIAL GRIMACE NOTED. PATIENT WITH SUPRAPUBIC CATH IN PLACE-REPORTED BY DAY SHIFT NURSE TO BE NON FUNCTIONAL AT THIS TIME AND THAT MD IS AWARE. WILL ADMINISTER ORDERED MEDICATIONS. SAFETY AND FALL PRECAUTIONS OBSERVED. BED ALARM KEPT ON. WILL MONITOR PATIENT.
[2020-10-17] MEDS: PHENYTOIN SODIUM IV 100 MG/2ML VIAL IV SCH (04:47)
--- NOTE | 2020-10-17 05:00 | NUR ---
MS RN CLOSING NOTES: PATIENT IN BED ASLEEP, RESPONDS TO NAME ONLY. ADMINISTERED ORDERED MEDICATIONS. SAFETY AND FALL PRECAUTIONS OBSERVED. BED ALARM KEPT ON. VIMPAT IV INFUSION CONTINUED. PATIENT KEPT ON NPO EXCEPT MEDS. RIGHT UPPER ARM MIDLINE. KEPT PATIENT WARM DRY AND COMFORTABLE. WILL ENDORSE PATIENT TO DAY SHIFT NURSE.
[2020-10-17 06:01] LABS: BASOPHILS % (AUTO) 0.5 % (0.0-2.0); EOSINOPHILS % (AUTO) 1.7 % (0.0-6.0); HEMATOCRIT 39 % (33-45); HEMOGLOBIN 13.5 g/dL (11.5-14.8); LYMPHOCYTES % (AUTO) 12.6 % (20.0-44.0); MEAN CORPUSCULAR HGB CONC 35 g/dl (31.0-36.0); MEAN CORPUSCULAR VOLUME 91 fL (82-100); MONOCYTES # (AUTO) 0.6 /CMM (0.1-1.30); MONOCYTES % (AUTO) 7.7 % (2.0-12.0); NEUTROPHILS # (AUTO) 6.2 /CMM (1.8-8.9); NEUTROPHILS % (AUTO) 77.5 % (43.0-81.0); PLATELET COUNT (AUTO) 303 /CMM (150-450)
[2020-10-17 06:12] LABS: CREATININE 0.5 mg/dL (0.6-1.3); POTASSIUM 3.4 mmol/L (3.5-5.1)
[2020-10-17] MEDS: LEVOTHYROXINE SODIUM 100 MCG TABLET PO SCH (06:45)
--- NOTE | 2020-10-17 07:30 | NUR ---
received pt.skin warm and dry.non verbal,vs stable.opens eyes and attempts to mouth words.
[2020-10-17] MEDS ORDERED: KEY,NONCONTROL,TO KEEP IN PYXI 1 EA MC ONE ×2 (07:33→12:08)
[2020-10-17 08:00] VITALS: BP 128/78
[2020-10-17] MEDS ORDERED: POTASSIUM CL. PREMIX PERIPHER. 50 ML IV SCH (08:30)
--- NOTE | 2020-10-17 08:50 | NUR ---
vimpat from noc shift still infusing,suprapubic cath in place and draining a lot.
--- NOTE | 2020-10-17 09:00 | NUR ---
spouse calling several times and wants dc'd today.
[2020-10-17 09:31] VITALS: BP 128/78
[2020-10-17] MEDS: FAMOTIDINE/PF INJ 20 MG/2 ML VIAL IV SCH (09:31)
[2020-10-17] MEDS: LISINOPRIL (5MG) 5 MG TABLET PO SCH (09:31)
[2020-10-17] MEDS: CITALOPRAM HYDROBROMIDE 10 MG TABLET PO SCH (09:31)
[2020-10-17] MEDS: CLOBAZAM 10MG TABLET PO SCH (09:42)
[2020-10-17] MEDS ORDERED: POTASSIUM CHLORIDE 20 MEQ TAB.PRT.SR PO ONE (10:00)
[2020-10-17] MEDS ORDERED: LACOSAMIDE 200 MG in IV NS 0.9% 100 ML IV SCH (11:43)
--- NOTE | 2020-10-17 12:24 | NUR ---
pt able to swallow apple sauce and pudding without difficulty, st eval pending, per WATER RESOURCE SPECIALIST Adrián okay to start puree food.
--- NOTE | 2020-10-17 12:40 | NUR ---
ambulance here and given report. photo taken of rt arm bruise.all papers signed and lt upper arm iv removed.taken via amb. to her home.meds in pharmacy packed up and sent with pt.
== END 2020-10-17 12:35 | disposition home or self-care (01) | DRG 101 ==
LOC: ER 02:54 → TELE 05:56 → MED 10-15 10:49
PROVIDERS: ADMIT Family Medicine; ATTEND Nurse Practitioner Acute Care
PROC: 05H633Z Insertion of Infusion Device into Left Subclavian Vein, Percutaneous Approach (ICD-10-PCS; principal; 2020-10-15)
PROC: B547ZZA Ultrasonography of Left Subclavian Vein, Guidance (ICD-10-PCS; 2020-10-15)
DX: G40.901 Epilepsy, unspecified, not intractable, with status epilepticus (principal); E44.1 Mild protein-calorie malnutrition; E87.1 Hypo-osmolality and hyponatremia; I69.351 Hemiplegia and hemiparesis following cerebral infarction affecting right dominant side; E03.9 Hypothyroidism, unspecified; R73.9 Hyperglycemia, unspecified; G35 Multiple sclerosis; E86.1 Hypovolemia; E88.09 Other disorders of plasma-protein metabolism, not elsewhere classified; Z68.22 Body mass index [BMI] 22.0-22.9, adult
CPT/HCPCS: 36415; 70450-TC; 71045-TC; 80048-TC; 80061-TC; 80076-TC; 80185-TC; 81001; 82962-TC; 83605-TC; 83735-TC; 84100-TC; 84443-TC; 84550-TC; 85025-TC; 87040-TC; 87081-TC; 87086-TC; 93971-TC; C9113; C9803; G0378; J1165; J1953; J3490; J7030; J7040; J7050; U0003

== ENCOUNTER 2021-06-12 00:06 | Inpatient (IN) | payer BC, OTHER ==
[~2021-06-12] VITALS: Ht 167.6 cm; Wt 69.4 kg
[~2021-06-12 00:06] MED LIST changes: +CITA10TA9 PO; +CLOB10TA3 PO; -LACO10SO3 PO; +LACO200T2 PO; +LEVO100T PO; -LEVO112T5 PO; -LISI-607 PO; +LISI-768 PO; -MERO500V23 IV
--- NOTE | 2021-06-12 00:08 | NUR ---
PT AAOX1. BIBRA 38 FROM HOME FOR C/O FEVER 101. NOTED TO HAVE A COUGH AND CONGESTION UPON PLACED IN BED 6. LINE ESTABLISHED RH 18G, BLOOD WORK COLLECTED, SENT TO LAB. URINE COLLECTED, SENT TO LAB. PLACED ON 3L NC. PT WAS NOTED 90% ROOM AIR.
--- NOTE | 2021-06-12 00:09 | NUR ---
BHUPINDER [phone]
--- NOTE | 2021-06-12 00:09 | NUR ---
STATED SHE HAS MS FOR 16 YEARS AND SEIZURES FOR 9 YEARS. CALL FOR ANY MORE INFO
[2021-06-12] MEDS ORDERED: PIPERACILLIN /TAZOBACTAM 3.375 G VIAL IV ONE (00:48)
[2021-06-12] MEDS ORDERED: VANCOMYCIN 1 GM VIAL ONE (00:48)
[2021-06-12 00:52] LABS: BASOPHILS % (AUTO) 0.1 % (0.0-2.0); HEMATOCRIT 41 % (33-45); HEMOGLOBIN 14.5 g/dL (11.5-14.8); LYMPHOCYTES # (AUTO) 0.3 K/uL (0.8-4.8); MEAN CORPUSCULAR HGB CONC 35 g/dl (31.0-36.0); MONOCYTES # (AUTO) 0.6 K/uL (0.1-1.30); PLATELET COUNT (AUTO) 303 K/uL (150-450)
[2021-06-12 00:55] LABS: LYMPHOCYTES % (AUTO) 2.8 % (20.0-44.0); MEAN CORPUSCULAR VOLUME 90 fL (82-100); MONOCYTES % (AUTO) 4.7 % (2.0-12.0); NEUTROPHILS # (AUTO) 11.2 K/uL (1.8-8.9); NEUTROPHILS % (AUTO) 92.4 % (43.0-81.0); RED BLOOD CELL COUNT(AUTO) 4.56 MIL/uL (4.0-5.2); WHITE BLOOD COUNT (AUTO) 12.1 K/uL (4.3-11.0)
[2021-06-12] MEDS ORDERED: VANCOMYCIN 1 GM in IV D5W 250 ML IV ONE (01:00)
[2021-06-12] MEDS ORDERED: IV NS 0.9% 1,000 ML BAG IV ONE (01:00)
[2021-06-12] MEDS ORDERED: PIPERACILLIN /TAZOBACTAM 3.375 G in IV D5W 50 ML IV ONE (01:00)
[2021-06-12 01:01] LABS: BILIRUBIN,URINE Negative (NEGATIVE); COLOR,URINE YELLOW (YELLOW); LEUKOCYTE ESTERASE ,URINE Small (NEGATIVE); NITRITE, URINE Positive (NEGATIVE); PROTEIN,URINE Negative (NEGATIVE); UGLUCOSE Negative (NEGATIVE); UROBILINOGEN,URINE 0.2 EU/dL (0.2)
[2021-06-12 01:09] LABS: CALCIUM, SERUM 8.6 mg/dL (8.5-10.1); CARBON DIOXIDE 25 mmol/L (21-32); CHLORIDE 94 mmol/L (98-107); CREATININE 0.8 mg/dL (0.6-1.3); GLUCOSE 185 mg/dL (74-106); POTASSIUM 3.2 mmol/L (3.5-5.1); SODIUM SERUM 129 mmol/L (136-145); UREA NITROGEN, BLOOD 10 mg/dL (7-18)
[2021-06-12 01:16] LABS: RBC,URINE 0-2 /HPF (0-2)
[2021-06-12 01:17] LABS: BACTERIA,URINE Moderate /HPF (None Seen); SQUAMOUS EPITHELIAL CELL,UR Rare /HPF (None Seen)
[2021-06-12 01:23] LABS: ALANINE AMINOTRANSFERASE 374 U/L (12-78); ALBUMIN 2.9 g/dL (3.4-5.0); ALKALINE PHOSPHATASE 214 U/L (46-116); ASPARTATE AMINOTRANSFERASE 217 U/L (15-37); BILIRUBIN,DIRECT 0.2 mg/dL (0.0-0.2); BILIRUBIN,TOTAL 0.7 mg/dL (0.2-1.0); TOTAL PROTEIN, SERUM 6.8 g/dL (6.4-8.2)
--- NOTE | 2021-06-12 01:34 | NUR ---
PROVIDED WITH BLANKET. REMAINS ON MONITOR AND PULSE OX.
--- NOTE | 2021-06-12 03:22 | NUR ---
REPOSITIONED IN BED.
--- NOTE | 2021-06-12 05:14 | NUR ---
PT RESTING COMFORTABLY. REMAINS ON 3L NC. VSS.
[2021-06-12] MEDS ORDERED: CLOB20TA3 PO (05:18)
[2021-06-12] MEDS ORDERED: ENOXAPARIN SODIUM 40 MG/0.4 ML DISP.SYRIN SQ ONE (07:54)
[2021-06-12] MEDS ORDERED: LEVOTHYROXINE SODIUM 100 MCG TABLET ONE (07:54)
[2021-06-12] MEDS ORDERED: PANTOPRAZOLE 40 MG TABLET.DR PO ONE (07:55)
[2021-06-12] MEDS ORDERED: AMLODIPINE BESYLATE 5 MG TABLET ONE (07:55)
[2021-06-12] MEDS: LEVOTHYROXINE SODIUM 100 MCG TABLET PO SCH (07:55)
[2021-06-12] MEDS ORDERED: ONDANSETRON HCL/PF 4 MG/2 ML VIAL IVP PRN (08:00)
[2021-06-12] MEDS ORDERED: ACETAMINOPHEN 325 MG TABLET PO PRN (08:00)
[2021-06-12] MEDS ORDERED: Z GUARD REMEDY 2 OZ OINT TP PRN (08:00)
[2021-06-12] MEDS: PANTOPRAZOLE 40 MG TABLET.DR PO SCH (08:04)
--- NOTE | 2021-06-12 08:13 | NUR ---
GOT BED 103
[2021-06-12] MEDS: ENOXAPARIN SODIUM 40 MG/0.4 ML DISP.SYRIN SQ SCH (08:17)
--- NOTE | 2021-06-12 08:18 | NUR ---
PATIENT A/OX1, NON-VERBAL, NO DISTRESS NOTED. BREATHING EVEN ANDUNLABORED, ON O2 AT 2LPM VIA NC. KEPT COMFORTABLE. VSS
[2021-06-12 08:43] LABS: BASOPHILS % (AUTO) 0.2 % (0.0-2.0); EOSINOPHILS % (AUTO) 0.1 % (0.0-6.0); HEMATOCRIT 41 % (33-45); HEMOGLOBIN 14.5 g/dL (11.5-14.8); LYMPHOCYTES # (AUTO) 0.6 K/uL (0.8-4.8); LYMPHOCYTES % (AUTO) 7.1 % (20.0-44.0); MEAN CORPUSCULAR HGB CONC 35 g/dl (31.0-36.0); MEAN CORPUSCULAR VOLUME 91 fL (82-100); MONOCYTES # (AUTO) 0.4 K/uL (0.1-1.30); MONOCYTES % (AUTO) 4.8 % (2.0-12.0); NEUTROPHILS # (AUTO) 7.1 K/uL (1.8-8.9); NEUTROPHILS % (AUTO) 87.8 % (43.0-81.0); PLATELET COUNT (AUTO) 294 K/uL (150-450); RED BLOOD CELL COUNT(AUTO) 4.53 MIL/uL (4.0-5.2)
--- NOTE | 2021-06-12 08:45 | NUR ---
RN NOTES ADMITTED 50 YEAR OLD FEMALE PATIENT FROM HOME WITH COMPLAINED OF FEVER AND COUGH. PATIENT IS ON 3L OXYGEN SATURATION 96%. PATIENT IN NO APPARENT RESPIRATORY DISTRESS NOTED. NO SIGN AND SYMPTOM OF PAIN NOTED AT THIS TIME. INITIAL ASSESSMENT WAS DONE AND RECORDED. VITAL SIGN TAKEN AND RECORDED. BP 117/68 PULSE 97 RR 18 TEMP 99.1. WILL CONTINUE TO MONITOR.
--- NOTE | 2021-06-12 08:49 | NUR ---
PATIENT TRANSFERRED TO ROOM 103 VIA ACLS PROTOCOL, GAVE BEDSIDE REPORT TO NANCY CLAUDIO FOR APOLINAR. PATIENT IN STABLE CONDITION, ON O2 AT 3LPM VIA NC AT THIS TIME.
[2021-06-12] MEDS: LISINOPRIL (5MG) 5 MG TABLET PO SCH (09:00)
[2021-06-12 09:03] LABS: CALCIUM, SERUM 8.3 mg/dL (8.5-10.1); CREATININE 0.6 mg/dL (0.6-1.3); MAGNESIUM 1.9 mg/dL (1.8-2.4); PHOSPHORUS 3.2 mg/dL (2.5-4.9); POTASSIUM 3.8 mmol/L (3.5-5.1)
[2021-06-12 09:09] LABS: THYROID STIMULATING HORMONE 0.904 uIU/mL (0.358-3.74)
[2021-06-12] MEDS: LACOSAMIDE 50 MG TABLET PO SCH ×2 (09:23→21:34)
[2021-06-12] MEDS: CITALOPRAM HYDROBROMIDE 10 MG TABLET PO SCH (09:30)
[2021-06-12] MEDS ORDERED: VANCOMYCIN 1 GM in IV D5W 250 ML IV SCH (10:00)
[2021-06-12 12:00] VITALS: BP 128/70
[2021-06-12] MEDS: PIPERACILLIN /TAZOBACTAM 3.375 G in IV D5W 50 ML IV SCH ×3 (13:16→23:49)
[2021-06-12] MEDS: AMLODIPINE BESYLATE 5 MG TABLET PO SCH (17:14)
--- NOTE | 2021-06-12 19:14 | NUR ---
RN CLOSING NOTES PATIENT IS ON BED. ALERT AND ORIENTED X1. PATIENT IS ON 3L OXYGEN SATURATING WELL. PATIENT IN NO APPARENT RESPIRATORY DISTRESS NOTED. NO SIGN AND SYMPTOM OF PAIN NOTED. HALLE AND EXAMINED BY MD WITH ORDERS MADE AND CARRIED OUT. ALL DUE MEDICATIONS WAS GIVEN.TELE MONITOR READING SINUS RHYTHM 92 BPM. IV ACCESS AT RIGHT HAND # 18 G WITH IV FLUID OF KCL 20MEQ IN IV NS 1L AT 100ML/HR WAITING FOR SUPPLY. SAFETY PRECAUTIONS WAS IN PLACED. BED IN LOWEST POSITION AND LOCKED. SIDERAILS UP X2 AND LOCKED. CALL LIGHT WITHIN REACH. WILL ENDORSED TO REGIONAL SALES LEADER FOR APOLINAR.
[2021-06-12] MEDS: Potassium Chloride 20 MEQ in IV NS 0.9% 1,000 ML IV PRN (19:26)
--- NOTE | 2021-06-12 19:30 | NUR ---
RN NOTE RECEIED PATIENT IN BED. ON COVID ISOLATION. A/OX1, PATIENT WHISPERS. ON OXYGEN 3L/MIN VIA NASAL CANNULA, RESPIRATIONS ARE EVEN AND UNLABORED. NO S/S SOB NOTED. NO C/O PAIN AT THIS TIME. EXTERNAL TELE MONITOR READS SINUS RHTYHM . IN NO APPARENT DISTRESS. IV ACCESS INFILTRATE, REMOVED, WILL PLACE ANOTHER IV ACCESS. SUPRAPUBIC CATHETER PRESENT, DRAINING TO GRAVITY, URINE IS YELLOW AND CLEAR. BED IS LOW AND LOCKED, HOB ELEVATED IN SEMI FOWLERS, SIDE RIALS UP X2, CALL LIGHT WITHIN REACH. WILL CONTINUE TO MONITOR THROUGHOUT SHIFT.
[2021-06-12 20:00] VITALS: BP 134/85
[2021-06-12] MEDS: VANCOMYCIN 1 GM in IV D5W 250 ML IV SCH (21:34)
[2021-06-13] VITALS: BP 135/79
[2021-06-13 04:00] VITALS: BP 131/78
[2021-06-13] MEDS: PIPERACILLIN /TAZOBACTAM 3.375 G in IV D5W 50 ML IV SCH ×3 (05:09→17:00)
[2021-06-13 06:31] LABS: ALBUMIN 2.8 g/dL (3.4-5.0); BILIRUBIN,DIRECT 0.2 mg/dL (0.0-0.2); BILIRUBIN,TOTAL 0.6 mg/dL (0.2-1.0); CALCIUM, SERUM 8.6 mg/dL (8.5-10.1); CREATININE 0.6 mg/dL (0.6-1.3); POTASSIUM 3.3 mmol/L (3.5-5.1); TOTAL PROTEIN, SERUM 6.9 g/dL (6.4-8.2)
--- NOTE | 2021-06-13 07:08 | NUR ---
RN NOTE ON COVID ISOLATION. A/OX1, . ON OXYGEN 3L/MIN VIA NASAL CANNULA, NO RESP DISTRESS. NO PAIN. TELE MONITOR READS SINUS RHYTHM . NO DISTRESS. IV IN LEFT WRIST #20 RUNNING 20MEQ KCL IN NS@100ML/HR. . SUPRAPUBIC CATHETER OUTPUT 1120CC. BED REMAINS LOW AND LOCKED, HOB ELEVATED IN SEMI FOWLERS, SIDE RIALS UP X2, CALL LIGHT WITHIN REACH. WILL ENDORSE TO ONCOMING SHIFT.
--- NOTE | 2021-06-13 07:36 | NUR ---
RN OPENING NOTE Pt is Awake, alert and oriented x4, on room air, no respiratory distress, no SOB. Left wrist IV site clean with ongoing NS/KCL. Telebox in place sinus rhythm. Safety precautions implemented, bed locked in lowest position. Call light within reach. Addendum: 06/13/21 at 0742 by ALEXY STARK RN Addendum: Alert and oriented x 1.
[2021-06-13] MEDS: LACOSAMIDE 50 MG TABLET PO SCH ×2 (08:59→21:31)
[2021-06-13] MEDS: LISINOPRIL (5MG) 5 MG TABLET PO SCH (09:01)
[2021-06-13] MEDS: LEVOTHYROXINE SODIUM 100 MCG TABLET PO SCH (09:01)
[2021-06-13] MEDS: PANTOPRAZOLE 40 MG TABLET.DR PO SCH (09:01)
[2021-06-13] MEDS: ENOXAPARIN SODIUM 40 MG/0.4 ML DISP.SYRIN SQ SCH (09:02)
[2021-06-13] MEDS: CITALOPRAM HYDROBROMIDE 10 MG TABLET PO SCH (09:03)
[2021-06-13] MEDS: Potassium Chloride 20 MEQ in IV NS 0.9% 1,000 ML IV PRN ×2 (09:19→22:22)
[2021-06-13] MEDS ORDERED: POTASSIUM CHLORIDE 20 MEQ TAB.PRT.SR PO SCH (09:30)
[2021-06-13] MEDS: VANCOMYCIN 1 GM in IV D5W 250 ML IV SCH ×2 (10:02→17:55)
--- NOTE | 2021-06-13 10:29 | NUR ---
WOUND CARE CONSULT: REVIEWED CHART, NURSING DOCUMENTATION AND PHOTO WHICH INDICATES DEEP TISSUE INJURY TO SACRUM, PRESENT ON ADMISSION. RECOMMENDATIONS MADE FOR WOUND CARE AND SKIN PROTECTION. DISCUSSED WITH NURSING STAFF. PT IS ON [facility] LOW AIRLOSS BED. MD IN AGREEMENT WITH PLAN OF CARE.
[2021-06-13] MEDS: AMLODIPINE BESYLATE 5 MG TABLET PO SCH (17:56)
--- NOTE | 2021-06-13 19:21 | NUR ---
RN CLOSING NOTE Pt is alert x 1, to verbal and tactile stimuli, no respiratory distress, no SOB. IV site with clean with no s/sx of infiltration. Safety precautions implemented, bed locked in lowest position. Wound care rendered, all due meds given as ordered. Call light within reach.
--- NOTE | 2021-06-13 19:30 | NUR ---
RN OPENING NOTES: RECEIVED PT A/OX1 IN BED RESTING COMFORTABLY. PATIENT IN NO S/SX OF ACUTE DISTRESS AT THIS TIME. NO SOB NOTED. PATIENT'S BREATHING IS EVEN AND UNLABORED. PATIENT IS ON 3L OF OXYGEN VIA NC; TOLERATING WELL. PATIENT ON TELE MONITORING READING SINUS TACHY HR IS @101s AT THE TIME OF RECEIVED. PATIENT ON MECHANICAL SOFT DIET; TOLERATES WELL. NOTED IV SITE ON L WRIST #20 ; PATENT, INTACT AND FLUSHING WELL; NO S/S OF INFECTION & INFILTRATION. WITH IV FLUID RUNNING ORDERED. [facility] SUPRAPUBIC CATH IN PLACE, MODERATE URINE OUTPUT NOTED. SAFETY MEASURES HAVE BEEN PROVIDED AND IMPLEMENTED. PATIENT BED ALARM IS ON. HEAD OF BED ELEVATED. BED IS LOCKED, IN LOWEST POSITION AND SIDE RAILS UP. CALL LIGHT WITHIN REACH OF THE PATIENT. APPLICABLE ISOLATION PRECAUTIONS IN PLACE. WILL CONTINUE TO MONITOR AND REASSESS FOR ANY CHANGES AND WILL CARRY OUT ANY ONGOING AND ACTIVE MD ORDER.
[2021-06-13 20:00] VITALS: BP 154/89
--- NOTE | 2021-06-13 22:00 | NUR ---
RN NOTES PATIENT REMAINED TO BE IN NO SIGNS OF ACUTE RESPIRATORY DISTRESS , VITAL SIGNS WNL AT THIS TIME. [employer] DRIER TENDER MADE AWARE. WILL CONTINUE TO MONITOR AND REASSESS FOR ANY CHANGES THROUGHOUT THE SHIFT.
[2021-06-14] VITALS: BP 147/83
[2021-06-14] MEDS: PIPERACILLIN /TAZOBACTAM 3.375 G in IV D5W 50 ML IV SCH ×3 (00:16→12:23)
[2021-06-14] MEDS: VANCOMYCIN 1 GM in IV D5W 250 ML IV SCH ×2 (01:49→10:04)
[2021-06-14 04:00] VITALS: BP 136/75
--- NOTE | 2021-06-14 04:00 | NUR ---
RN NOTES NO NOTED CHANGES IN PATIENT CONDITION AT THIS TIME; PATIENT VITALS STABLE, NO SIGNS OF ACUTE RESPIRATORY DISTRESS. AM PATIENT CARE RENDERED. EMAIL MARKETING COORDINATOR MADE AWARE. WILL CONTINUE TO MONITOR AND REASSESS FOR ANY CHANGES THROUGHOUT THE SHIFT.
[2021-06-14] MEDS: LEVOTHYROXINE SODIUM 100 MCG TABLET PO SCH (06:02)
[2021-06-14 06:33] LABS: BASOPHILS % (AUTO) 0.4 % (0.0-2.0); EOSINOPHILS % (AUTO) 1.4 % (0.0-6.0); HEMATOCRIT 41 % (33-45); HEMOGLOBIN 14.3 g/dL (11.5-14.8); LYMPHOCYTES # (AUTO) 0.6 K/uL (0.8-4.8); LYMPHOCYTES % (AUTO) 7.4 % (20.0-44.0); MEAN CORPUSCULAR HGB CONC 35 g/dl (31.0-36.0); MEAN CORPUSCULAR VOLUME 91 fL (82-100); MONOCYTES # (AUTO) 0.5 K/uL (0.1-1.30); MONOCYTES % (AUTO) 6.2 % (2.0-12.0); NEUTROPHILS # (AUTO) 6.9 K/uL (1.8-8.9); NEUTROPHILS % (AUTO) 84.6 % (43.0-81.0); PLATELET COUNT (AUTO) 264 K/uL (150-450); RED BLOOD CELL COUNT(AUTO) 4.45 MIL/uL (4.0-5.2); WHITE BLOOD COUNT (AUTO) 8.2 K/uL (4.3-11.0)
--- NOTE | 2021-06-14 06:37 | NUR ---
RN CLOSING NOTE: PATIENT REMAINS IN ROOM IN NO SIGNS OF RESPIRATORY DISTRESS, PATIENT STILL ON 5L OF 02 VIA T-PIECE ;TOLERATING WELL SATURATING @ >95% SP02. SAFETY MEASURES IMPLEMENTED, BED IN LOWEST POSITION, LOCKED, SIDE RAILS UP, CALL LIGHT WITHIN REACH. ALL NEEDS AND ORDERS ADDRESSED DURING THE SHIFT. IV ACCESS MAINTAINED INTACT, SECURED AND FLUSHING WELL. ALL DUE MEDS GIVEN ORDERED & SCHEDULED ; PATIENT TOLERATED WELL. PATIENT KEPT CLEAN AND COMFORTABLE WITHIN THE SHIFT. PATIENT ENDORSED TO INCOMING SHIFT RN WITH STABLE VITAL SIGN AND FOR CONTINUITY OF CARE. Addendum: 06/14/21 at 0637 by JUSTIN DE PAZ RN PLS DISREGARD NOTES
--- NOTE | 2021-06-14 06:38 | NUR ---
RN CLOSING NOTE: PATIENT REMAINS IN ROOM IN NO SIGNS OF RESPIRATORY DISTRESS, PATIENT STILL ON 3L OF 02 VIA NC ;TOLERATING WELL SATURATING @ >95% SP02. SAFETY MEASURES IMPLEMENTED, BED IN LOWEST POSITION, LOCKED, SIDE RAILS UP, CALL LIGHT WITHIN REACH. ALL NEEDS AND ORDERS ADDRESSED DURING THE SHIFT. IV ACCESS MAINTAINED INTACT, SECURED AND FLUSHING WELL. ALL DUE MEDS GIVEN ORDERED & SCHEDULED ; PATIENT TOLERATED WELL. PATIENT KEPT CLEAN & COMFORTABLE WITHIN THE SHIFT. PATIENT ENDORSED TO INCOMING SHIFT RN WITH STABLE VITAL SIGN AND FOR CONTINUITY OF CARE.
[2021-06-14 08:08] LABS: CREATININE 0.6 mg/dL (0.6-1.3); MAGNESIUM 2.1 mg/dL (1.8-2.4); PHOSPHORUS 3.5 mg/dL (2.5-4.9); POTASSIUM 3.6 mmol/L (3.5-5.1)
[2021-06-14 08:26] VITALS: BP 136/82
[2021-06-14] MEDS: LACOSAMIDE 50 MG TABLET PO SCH (09:37)
[2021-06-14] MEDS: LISINOPRIL (5MG) 5 MG TABLET PO SCH (09:38)
[2021-06-14] MEDS: ENOXAPARIN SODIUM 40 MG/0.4 ML DISP.SYRIN SQ SCH (09:44)
[2021-06-14] MEDS: PANTOPRAZOLE 40 MG TABLET.DR PO SCH (10:08)
[2021-06-14] MEDS: CITALOPRAM HYDROBROMIDE 10 MG TABLET PO SCH (10:11)
--- NOTE | 2021-06-14 10:12 | NUR ---
RN NOTES RECOGNIZED I NEEDED A TOTAL OF 4 TABLETS OF VIMPAT LACOSAMIDE AT 50MG EACH AND PULLED ONE OUT OF THE MEDICATION PYXSIS FACING TO THE WEST DIRECTION WHICH HAS A TOTAL OF 3 LEFT IN BOX AND HAD 4 PILLS TOTAL PULLED 1 LEAVES 3 TOTAL AND THEN REALIZED I NEEDED ALL 4 PILLS SO PULLED THE OTHER REMAINING 3 PILLS FROM THE MEDICATION PYXSIS FACING TO THE NORTH AND PULLED THE 3 PILLS SO THAT WILL SHOW AN EXTRA ONE IN CART.
[2021-06-14] MEDS ORDERED: AMOX1TAB16 PO (11:33)
[2021-06-14 12:03] VITALS: BP 138/84
[2021-06-14] MEDS: Potassium Chloride 20 MEQ in IV NS 0.9% 1,000 ML IV PRN ×2 (12:06→12:08)
[2021-06-15] MEDS ORDERED: VANCOMYCIN 1 GM in IV D5W 250 ML IV SCH (09:00)
== END 2021-06-14 16:52 | DRG 871 ==
LOC: ER 00:08 → TRANSITION 03:59 → TELE1 08:20
PROVIDERS: ADMIT Nurse Practitioner Acute Care; ATTEND Nurse Practitioner Acute Care
DX: A41.9 Sepsis, unspecified organism (principal); J69.0 Pneumonitis due to inhalation of food and vomit; E87.1 Hypo-osmolality and hyponatremia; N39.0 Urinary tract infection, site not specified; E44.0 Moderate protein-calorie malnutrition; I10 Essential (primary) hypertension; Z20.822 Contact with and (suspected) exposure to COVID-19; G35 Multiple sclerosis; G40.909 Epilepsy, unspecified, not intractable, without status epilepticus; E03.9 Hypothyroidism, unspecified; Z79.899 Other long term (current) drug therapy; E87.6 Hypokalemia; R74.01 Elevation of levels of liver transaminase levels; Z79.890 Hormone replacement therapy
CPT/HCPCS: 36415; 71045-TC; 80048-TC; 80061-TC; 80076-TC; 80202-TC; 81001; 83605-TC; 83735-TC; 84100-TC; 84443-TC; 84484-TC; 85025-TC; 85730-TC; 87040-TC; 87081-TC; 87086-TC; 92526; 92611-TC; C9803; G0378; J1650; J2405; J2543; J3370; J3480; J7030; J7050; J7060; U0003